=== PATIENT | female | born 1990 | race Caucasian/White ===

== ENCOUNTER 2022-05-31 15:51 | Emergency (ER) ==
[2022-05-31] MEDS ORDERED: hydrOXYzine 25 MG TAB ONE ×2 (18:02→18:03)
[2022-05-31] MEDS ORDERED: Ondansetron ODT 4 MG TAB ONE (18:02)
[2022-05-31 18:25] LABS: Bilirubin Neg (Negative); Blood, Urine Negative (Negative); Clarity Clear (Clear); Glucose, Urine (Dipstick) Normal (Negative); Ketone, Urine Negative (Negative); Leukocyte Negative (Negative); Nitrite Negative (Negative); Protein, Urine (Dipstick) Negative (Neg-Trace); Urobilinogen Normal mg/dL (Less than 2)
[2022-05-31 18:30] LABS: BHCG - Serum Negative (NEGATIVE); Pregs Control Background? CLEAR/WHITE (CLR/WHITE); Pregs Control Bar Appear? YES (CONTROL BAR)
== END 2022-05-31 19:00 | disposition home or self-care (01) ==
LOC: CSHERS 15:51
DX: L42 Pityriasis rosea (principal); R11.2 Nausea with vomiting, unspecified; I25.2 Old myocardial infarction; G40.909 Epilepsy, unspecified, not intractable, without status epilepticus; F17.210 Nicotine dependence, cigarettes, uncomplicated
CPT/HCPCS: 36415; 81003; 84703; 99283; Q0162

== ENCOUNTER 2022-06-13 13:20 | Emergency (ER) | payer SELFPAY | END 2022-06-13 14:45 | disposition home or self-care (01) | LOC: CSHERS 13:20 | DX: B09 Unspecified viral infection characterized by skin and mucous membrane lesions (principal); L42 Pityriasis rosea | CPT/HCPCS: 99282 ==

== ENCOUNTER 2022-10-24 22:06 | Emergency (ER) | payer SELFPAY ==
[2022-10-25] MEDS ORDERED: Metoclopramide HCl 10 MG/2 ML VIAL ONE (00:50)
[2022-10-25] MEDS ORDERED: diphenhydrAMINE 50 MG/ML VIAL ONE (00:50)
[2022-10-25 00:53] LABS: #Basophils 0.1 10x3/uL (0.0-0.2); #Monocytes 0.4 10x3/uL (0.0-1.1); %Basophils 1.1 % (0.0-2.0); %Eosinophils 0.9 % (0.0-6.0); %Lymphocytes 25.1 % (18.0-47.0); %Monocytes 9.4 % (0.0-10.0); %Neutrophils 63.3 % (40.0-75.0); Hemoglobin 14.8 g/dL (12.0-15.5); Mean Corpuscular HGB CONC 36.7 g/dL (32.0-36.0); Mean Corpuscular Hemoglobin 32.5 pg (27.0-33.0); Mean Corpuscular Volume 88.6 fl (81.6-98.3); Mean Platelet Volume 10.9 fl (7.4-10.4); Platelet Count 302 10x3/uL (150-450); RBC Distribution Width 11.9 % (11.5-14.5); Red Blood Cell (RBC) Count 4.55 10x6/uL (3.90-5.03); White Blood Cell (WBC) Count 4.7 10x3/uL (3.5-10.5)
[2022-10-25 00:58] LABS: BHCG - Serum Negative (NEGATIVE); Pregs Control Background? CLEAR/WHITE (CLR/WHITE); Pregs Control Bar Appear? YES (CONTROL BAR)
[2022-10-25 01:05] LABS: Anion Gap 13 mmol/L (10-20); BUN (Urea Nitrogen) 8 mg/dL (7.0-18.7); Calc. Creatinine Clearance 0 mL/min (70-130); Calcium 9.4 mg/dL (7.8-10.44); Carbon Dioxide 32 mmol/L (22-29); Chloride 97 mmol/L (98-107); Estimated GFR 106; Glucose 101 mg/dL (70-105); Magnesium 2.1 mg/dL (1.6-2.6); Potassium 3.2 mmol/L (3.5-5.1); Sodium 139 mmol/L (136-145)
[2022-10-25] MEDS ORDERED: Morphine 4 MG/ML VIAL ONE ×2 (02:24→03:25)
== END 2022-10-25 03:52 | disposition home or self-care (01) ==
LOC: CSHERS 22:06
DX: R51.9 Headache, unspecified (principal); I25.10 Atherosclerotic heart disease of native coronary artery without angina pectoris; F17.290 Nicotine dependence, other tobacco product, uncomplicated; G40.909 Epilepsy, unspecified, not intractable, without status epilepticus; I25.2 Old myocardial infarction
CPT/HCPCS: 70450; 80048; 83735; 84703; 85025; 96374; 96375; 96376; J1200; J2270; J2765